=== PATIENT | male | born 1955 | race Caucasian/White ===

== ENCOUNTER 2016-10-05 23:57 | Emergency (ER) | payer BC ==
[2016-10-06 00:13] LABS: Hematocrit 38.7 % (42.0-52.0); Hemoglobin 12.9 gm/dL (13.5-18.0); Mean Corpuscular Hemoglobin 27.7 pg (27-31); Mean Corpuscular Hgb Conc 33.3 g/dl (32-36); Mean Platelet Volume 9.5 fl (6.0-9.5); Neutrophil # 4.3 K/mm3 (1.3-6.0); Neutrophil % 64.1 % (42-75.0); Platelet Count 262 K/mm3 (150-450); Red Blood Count 4.66 M/mm3 (4.7-6.0); Red Cell Distribution Width 13.5 % (11.5-14.0); White Blood Count 6.8 K/mm3 (4.0-10.5)
--- NOTE | 2016-10-06 00:16 | ERNOTE ---
Neuro HPI ER Record Presenting Symptoms: impaired speech Time Seen by Provider: 10/06/16 00:03 Source: patient Exam Limitations: clinical condition Immunizations: IMMUNIZATION HX Immunizations Up to Date Yes History of Influenza Vaccine No Hx Pneumococcal Vaccination No Allergies/Adverse Reactions: Allergies Allergy/AdvReac Type Severity Reaction Status Date / Time No Known Allergies Allergy Verified 08/28/15 07:56 Home Medications: HOME MEDICATIONS Atorvastatin Calcium 40 mg PO DAILY 10/06/16 [Last Taken Unknown] Eszopiclone 1 mg PO DAILY 10/06/16 [Last Taken Unknown] Oxybutynin Chloride [Ditropan Xl] 10 mg PO DAILY 10/06/16 [Last Taken Unknown] QUEtiapine FUMARATE [Seroquel] 25 mg PO DAILY 10/06/16 [Last Taken Unknown] QUEtiapine FUMARATE [Seroquel] 100 mg PO HS 10/06/16 [Last Taken Unknown] Tamsulosin HCl 0.4 mg PO HS 10/06/16 [Last Taken Unknown] - History of Present Illness Narrative: Pt was going to [facility] to get a snack for him and his . On the way there he felt drowsy and began to have trouble speaking. At [facility] he had trouble communicating over the speaker due to difficulty speaking. He called his stating he needed an ambulance to go to the hospital. He then drove himself to this ED with some difficulty before an ambulance could arrive there. Onset: sudden onset, continues in ER Severity: mild - Character of Deficits New weakness: Present: other - difficulty speaking. Baseline Cognition: Present: alert, oriented x 4 Baseline Gait: Present: uses a cane/walker Associated Symptoms: Reports: trouble concentrating, trouble thinking Review of Systems - Review of Systems Constitutional: Absent: recent illness EYE: Absent: blurred vision ENT: Present: no symptoms reported Respiratory: Absent: shortness of breath Cardiology: Absent: chest pain Gastrointestinal/Abdominal: Absent: nausea, vomiting Genitourinary: Present: no symptoms reported Musculoskeletal: Present: no symptoms reported Skin: Present: no symptoms reported Neurological: Present: See HPI Endocrine: Present: no symptoms reported Hematologic/Lymphatic: Present: no symptoms reported Psych: Present: no symptoms reported - Patient's Past Medical History Patient History - Medical: Migraines Patient History - Cardiac/Respiratory: No pertinent hx Patient History - Cancer: Lymphoma Patient History - Surgical Procedures: No surgical history Patient History - Other: None - Family History Mother Family History - Medical: Father Family History - Medical: Family History - Cardiac/Respiratory: Coronary Heart Disease - Social History Living Situations: home Abuse History: No History of abuse Psych History: No pertinent hx Smoking Status: Current every day smoker Patient requests Smoking Cessation Consult: No Initiate information on Smoking Cessation: No Alcohol Use: occasionally Drug Use: none - Immunizations Immunizations Up to Date: Yes Hx Pneumococcal Vaccination: No History of Influenza Vaccine: No Physical Exam - Physical Exam General Appearance: Present: wd/wn, alert, no apparent distress Eye Exam: Normal inspection: bilateral, PERRL: bilateral, EOMI: bilateral Ears, Nose, Throat: Present: normal ENT inspection Neck: Present: normal inspection, nontender Respiratory: Present: no respiratory distress, normal breath sounds, no accessory muscle use, chest nontender, lungs clear Cardiovascular/Chest: Present: regular rate, rhythm, no murmur, normal peripheral pulses Gastrointestinal/Abdominal: Present: normal bowel sounds, nontender, nondistended Back Exam: Present: normal inspection Extremity Exam: Present: normal inspection, normal range of motion Neurological Exam: Present: alert, oriented, lens and frames prescription clerk II-XII nml as tested, normal cerebellar test, facial droop - slight droop noticed on the right at rest but no deficit with active testing. Absent: motor weakness Skin Exam: Present: normal color, warm/dry Lymphatic Exam: Present: no adenopathy [place] Coma Scale - Assess Eye Opening: Spontaneous Motor: Obeys Commands Verbal: Oriented - Total Coma Scale Total: 15 Initial Stroke Assessment - Date/Time of assessment Stroke Scale Date: 10/06/16 Stroke Scale Time: 00:10 - NIH Stroke Scale Level of Consciousness: Alert LOC Questions (Year and Age): Answers both correctly LOC Commands (open/close eyes/fist): Performs both correctly Lateral Gaze Paresis: None Visual Field Loss: No visual loss Facial Palsy: Normal movement Right Arm Motor (10 sec hold): No drift Left Arm Motor (10 sec hold): No drift Right Leg Motor (5 sec hold): No drift Left Leg Motor (5 sec hold): No drift Limb Ataxia (finger/nose heel/stout): Absent Sensory Loss (pinprick arms/legs/face): Mild, aware yet dulled Language Aphasia (description/naming/reading): No aphasia; normal Dysarthria (speech clarity): Slurring, intelligeble Neglect Inattention (visual/tactile/auditory/spatial/person): No neglect Initial Stroke Scale Score:: 2 - Stroke Risk Assessment Stroke Risk Assessment Level: 1-4 Mild Impairment Stroke Inclusion/Exclusion Cri - Inclusion Questions: Yes Onset of symptoms <3 1/2 hours of admission to ETC: Yes - Exclusion Questions: Major symptoms rapidly improving: No Seizure at onset of stroke: No SBP>185; DBP>110 at time treatment is to begin: No Patient received Heparin or Coumadin within 48 hours: No Patient has elevated PTT or Protime/INR: No Blood glucose <50mg/dl or >400mg/dl: No NIHSS Score <4 or >22 performed by physician: Yes ED Progress - Results and Orders Patient's Lab Results:: I have reviewed the patient's lab results. Results and Orders: Laboratory Tests 10/06/16 10/06/16 10/06/16 00:09 00:09 00:09 WBC 6.8 Hgb 12.9 L Hct 38.7 L Plt Count 262 PT 10.8 INR (Anticoag Therapy) 1.04 Sodium 143 H Potassium 3.7 Chloride 107 H Carbon Dioxide 22.5 L Anion Gap 17.2 H BUN 38 H D Creatinine 1.77 H D Est GFR (Non-Af Amer) 42 L D BUN/Creatinine Ratio 21.5 Random Glucose 126 H Calcium 8.9 - Vital Signs Patient's Vital Signs:: I have reviewed the patient's vital signs. Vital Signs: Vital Signs 10/06/16 00:04 Temperature 36.5 C Pulse Rate 92 Respiratory 18 Rate Blood Pressure 112/69 O2 Sat by Pulse 97 Oximetry - EKG EKG: NSR EKG read: Interp. by md - CT/Ultrasound CT/Ultrasound Narrative: CT head: no acute changes - Progress/Reassessment Progress:: Unchanged Progress Note-Subjective: 10/06/16 00:56 on phone with [facility], Spoke with Dr. Ray Olivas from [facility]. He will accept the patient whether or not we give thrombolytics. he would want Heparin given if patient does not receive thrombolytics. Waiting for Dr. Malik Russo neurology. 10/06/16 01:22 Received call back from [place] with Dr. Malik Russo. He states that there is no real contraindication to thrombolytics but it is not necessary. He feels if the patient is very concerned with his symptoms I could give it. Spoke with the patient and his and they would rather go with Heparin only. Called and notified [facility] Nurse coffee supervisor of the decision, bed placement will be made accordingly. Departure Clinical Impression: CVA (cerebral vascular accident) Qualifiers: CVA mechanism: unspecified Qualified Code(s): I63.9 - Cerebral infarction, unspecified - Departure Disposition: Other health care facility Condition: Serious
[2016-10-06 00:22] LABS: Anion Gap 17.2 mmol/L (6.8-13.8); BUN/Creatinine Ratio 21.5 (9.0-21.6); Calcium * 8.9 mg/dL (7.9-10.9); Carbon Dioxide 22.5 mmol/L (24-32.6); Potassium 3.7 mmol/L (3.4-4.6)
--- OUTSIDE RECORDS SUMMARY | 2016-10-06 00:23 | XMS REPORT | Continuity of Care Document ---
:1955 Author Organization [facility] ([facility]) Address [address] [place] [address] Phone [phone] Care Team Providers Name Role Phone Jonathan Doshi Primary Care Provider [phone] Source Comments This disclosure is being made pursuant to the Care Everywhere program, applicable federal and state laws, and may not contain all informaitonavailable regarding this patient.[facility] ([facility]) Active Allergies and Adverse Reactions No Known Allergies Current Medications Prescription Sig. Disp. Refills Start Date End Date Status warfarin (COUMADIN) 2.5 mg Take 2.5 Tabs by Active tablet mouth daily. furosemide (LASIX) 80 mg Take 80 mg by Active tablet mouth daily. POTASSIUM PO Take 2 Tabs by Active mouth daily. HYDROCODONE Take 2 Tabs by Active BIT/ACETAMINOPHEN (VICODIN mouth daily as PO) needed. Active Problems Not on file Social History Tobacco Use Types Packs/Day Years Used Date Never Assessed Last Filed Vital Signs Vital Sign Reading Time Taken Blood Pressure 129/79 10/16/2009 10:37 AM CDT Pulse 80 10/16/2009 10:37 AM CDT Temperature 35.9 C (96.6 F) 10/16/2009 10:36 AM CDT Respiratory Rate - - Height 1.69 m (5' 6.53") 10/16/2009 10:36 AM CDT Weight 115.3 kg (254 lb 3.1 oz) 10/16/2009 10:36 AM CDT Body Mass Index 40.37 10/16/2009 10:36 AM CDT Oxygen Saturation - - Plan of Care Health Maintenance Due Date Last Done Comments HCV Screening 1955 Hepatitis B Vaccine (1 of 3 - Primary Series) 1955 Tdap Vaccine 1968 Lipid Disorder Screening 09/08/1975 MMR Vaccine 09/08/1975 Td Vaccine 09/08/1975 Colonoscopy 2007 Prostate Cancer Screening 09/08/2007 Influenza Vaccine: Seasonal (#1) 01/25/2016 Results from Last 3 Months Not on file
--- OUTSIDE RECORDS SUMMARY | 2016-10-06 00:23 | XMS REPORT | Continuity of Care Document ---
:1955 Author Organization [facility] [place] [address] Care Team Providers Name Role Phone Elaine Oreilly Primary Care Provider [phone] Source Comments This disclosure is being made pursuant to the [employer] program and maynot contain all information available regarding this patient.[facility] Active Allergies and Adverse Reactions No Known Allergies Current Medications Be aware that medications may not be up to date as of this document. Alwaysverify current medications with the patient. Prescription Sig. Disp. Refills Start Date End Date Status aspirin 81 MG Take 81 mg by Active tablet mouth daily. atorvastatin Take 1 tablet by 30 tablet 11 04/25/2016 Active (LIPITOR) 40 MG mouth daily. 7 tablet QUEtiapine Take 100 mg by 1 06/23/2016 Active Fumarate mouth nightly. (SEROQUEL) 100 MG tablet eszopiclone Take 1 tablet by 30 tablet 2 07/25/2016 Active (LUNESTA) 1 MG mouth nightly. TABS oxybutynin Take 1 tablet by 30 tablet 6 07/25/2016 Active (DITROPAN-XL) 10 mouth daily. MG 24 hr tablet QUEtiapine Indications: 08/01/2016 Active Fumarate takes 25mg at (SEROQUEL) 25 MG noon tablet colchicine 0.6 MG 2 tabs initial 10 tablet 0 08/08/2016 Active tablet dose, 1 tab 1 hour later. 1 tab daily thereafter until symptoms relieved. tamsulosin HCl TAKE 1 CAP BY 30 capsule 12 08/23/2016 Active (FLOMAX) 0.4 MG MOUTH ONCE DAILY capsule FLUoxetine HCl Take by mouth. Active (PROZAC PO) Indications: just ordered thru Sravani Zhong NP FLUoxetine 09/12/2016 Active (PROZAC) 20 MG capsule oxyCODONE-acetamin Take 1 tablet by 25 tablet 0 09/19/2016 Active ophen (PERCOCET) mouth 2 (two) 5-325 MG per times daily as tablet needed for Pain. potassium chloride Take 7 tabs oral 7 tablet 0 08/08/2016 Discontinued (K-TAB) 10 MEQ x one dose 7 tablet XARELTO 10 MG TABS 10 mg daily. 08/16/2016 Discontinued tablet 7 oxyCODONE-acetamin Take 1 tablet by 50 tablet 0 08/23/2016 Discontinued ophen (PERCOCET) mouth every 6 7 5-325 MG per (six) hours as tablet needed for Pain. cephALEXin Take 1 capsule 20 capsule 0 09/12/2016 (KEFLEX) 500 MG by mouth 2 (two) 7 capsule times daily. Active Problems Problem Noted Date Unable to bear weight 08/17/2016 Post-operative state 08/17/2016 CAD (coronary artery disease) 09/09/2015 Post PTCA 09/09/2015 Hyperlipidemia 09/09/2015 Anemia in chronic renal disease 09/03/2015 Chronic kidney disease, stage III (moderate) 09/03/2015 Hyperparathyroidism, secondary renal (HCC) 09/03/2015 Preop cardiovascular exam 09/02/2015 Arthritis of knee 09/02/2015 SOB (shortness of breath) 09/02/2015 Smoking 09/02/2015 Metabolic acidosis 04/03/2015 Chronic pain 04/03/2015 Dehydration 04/03/2015 Acute kidney injury (HCC) 04/03/2015 Follicular lymphoma (HCC) 09/22/2014 Carpal tunnel syndrome 11/04/2013 Overview: Overview: bilateral, seen on EMG ESPINOZA CUMMINS MD Migraine 10/24/2013 Overview: Overview: ESPINOZA CUMMINS MD Disturbance of skin sensation 10/24/2013 Overview: Overview: ESPINOZA CUMMINS MD Convulsions (HCC) 01/30/2012 Overview: Overview: MARION ARCOS MD Malignant lymphoma of extranodal and solid organ sites ([facility]) 01/16/2012 Overview: Overview: MARION ARCOS MD Family history of ischemic heart disease 10/19/2010 Overview: Overview: SUSANNA CONTEH MD Gout 10/19/2010 Overview: Overview: SUSANNA CONTEH MD Palpitations 10/19/2010 Overview: Overview: SUSANNA CONTEH MD Sleep apnea 10/19/2010 Overview: Overview: SUSANNA CONTEH MD Tobacco use disorder 10/19/2010 Overview: Overview: SUSANNA CONTEH MD 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 Overview: Overview: MARION ARCOS MD Overview: MARION ARCOS MD Phlebitis and thrombophlebitis of femoral vein (HCC) 09/24/2009 Overview: Overview: Most Recent Encounters Date Type Specialty Providers Description 10/03/2016 Initial consult Psychiatry Dionysus-Rouintr Bipolar 2 disorder rik Mayra, (HCC) (Primary Dx) PsyD 09/28/2016 Treatment Physical Therapy Alysa Chahal Post-operative B, DPM state (Primary Dx) Yaya Vázquez PTA 09/28/2016 Office Visit Podiatry Alysa Chahal Surgery follow-up B, DPM (Primary Dx) 09/22/2016 Data Import 09/19/2016 Office Visit Podiatry Alysa Chahal Surgery follow-up B, DPM (Primary Dx) 09/12/2016 Office Visit Family Medicine Elaine Oreilly DEEDEE (obstructive W, MERCHANDISING MANAGER sleep apnea) (Primary Dx); Bipolar I disorder depressed with melancholic features (HCC) 09/12/2016 Clinical Support Radiology Chahal, Shadiwetal Bunionette of left B, DPM foot; Hallux Henrieville, Li, rigidus of left RT foot 09/12/2016 Office Visit Podiatry Chahal, Shwetal Bunionette of left B, DPM foot (Primary Dx); Hallux rigidus of left foot; Hallux rigidus, right foot; Bunionette of right foot 09/12/2016 Orders Only Provider, Not In System 09/08/2016 Transcribe Orders Developmental and Vivienne Zhong Bipolar I Behavioral G, PERSONAL FINANCIAL COUNSELOR disorder, most Pediatrics recent episode depressed with melancholic features (HCC) (Primary Dx) 2016 Telephone Podiatry Che Velez bearing Kheashaun R status. 2016 Orders Only Provider, Not In System 09/02/2016 Documentation Family Medicine Barbara Rider Results - BMP from ISAIAS [facility]. 08/31/2016 Orders Only Oncology Sparrow, Prachi M, Malignant lymphoma CARPENTER PACKING of extranodal and solid organ sites (HCC) (Primary Dx) 08/31/2016 Telephone Podiatry Mayra Moody Other - pre-cert K, CARPENTER PACKING 08/24/2016 Orders Only Provider, Not In System 08/23/2016 Office Visit Podiatry Alysa Chahal Bunionette of left B, DPM foot (Primary Dx); Hallux rigidus of left foot 08/22/2016 Telephone Podiatry Che Velez - regarding Kheashaun R surgical foot; 08/19/2016 Orders Only [facility] Elaine Oreilly Hypokalemia W, MERCHANDISING MANAGER (Primary Dx) 08/17/2016 Telephone Podiatry Mayra Moody Other - post-op K, CARPENTER PACKING dressing 08/17/2016 Orders Only Podiatry Mayra Moody Unable to bear K, CARPENTER PACKING weight (Primary Dx); Post-operative state 08/16/2016 Office Visit Physical Therapy Yaya Vázquez Post-operative J, CLIENT SOLUTIONS SPECIALIST state (Primary Dx); Unable to bear weight 08/15/2016 Refill [facility] Elaine Oreilly W, MERCHANDISING MANAGER 08/12/2016 Telephone [facility] Elaine Oreilly Pre-Op Call W, MERCHANDISING MANAGER 08/10/2016 Telephone Podiatry Che Velez - Precert Kheashaun R 08/10/2016 Erroneous Telephone Podiatrreece Velez, Encounter Laceyeasbelenun R 08/08/2016 Office Visit Podiatry Alysa Chahal Gout of right B, DPM foot, unspecified cause, unspecified chronicity (Primary Dx); Bilateral foot pain; Bunionette of left foot; Bunionette of right foot; Hallux rigidus, left foot; Hallux rigidus, right foot 08/08/[address] [facility] Elaine Valadez Pre-operative exam W, MERCHANDISING MANAGER (Primary Dx) 08/08/2016 Clinical Support Radiology Alysa Chahal Pre-op testing; B, DPM Bunionette of left Chantell Gagnon L, foot; Hallux RDMS rigidus of left foot 08/08/2016 Refill Podiatry Alysa Chahal B, DPM 08/08/2016 Telephone [facility] Elaine Oreilly Results W, MERCHANDISING MANAGER 08/08/2016 Orders Only Podiatry Mayra Moody Pre-op testing ISAIAS Barahona (Primary Dx); Bunionette of left foot; Hallux rigidus of left foot 08/04/2016 Orders Only Podiatry Rosie, Preoperative Kheashaun R clearance (Primary Dx); Bunionette of left foot; Bunionette of right foot; Hallux rigidus, left foot; Hallux rigidus, right foot 08/04/2016 Orders Only Podiatry Rosie, Preoperative Kheashaun R clearance (Primary Dx); Bunionette of left foot; Hallux rigidus, left foot; Bunionette of right foot; Hallux rigidus, right foot 08/03/2016 Telephone Podiatry Mayra Moody Other - schedule ISAIAS Barahona sugtawanda 07/25/2016 Office Visit Family Medicine Elaine Oreilly Vasculogenic W, MERCHANDISING MANAGER erectile dysfunction, unspecified vasculogenic erectile dysfunction type (Primary Dx); Overactive bladder; Mood disorder ([facility]) 07/25/2016 Refill Urology Mandy Oreilly RN 07/25/2016 Refill Family Medicine Cara Guadarrama CMA 07/21/2016 Office Visit Podiatry Alysa Chahal Bunionette of left B, DPM foot (Primary Dx); Bunionette of right foot; Bilateral foot pain; Hallux rigidus of both feet; Skew foot deformity, unspecified laterality 07/19/2016 Refill Urology Cara Jean-Baptiste RN Social History Tobacco Use Types Packs/Day Years Used Date Current Every Day Smoker Cigarettes Smokeless Tobacco: Never Used Tobacco Cessation:Ready to Quit: No; Counseling Given: Yes Comments: Alcohol Use Drinks/Week oz/Week Comments No 0 Standard drinks or equivalent 0.0 Alcoholic Drinks/day: CURRENT ALCOHOL USER Last Filed Vital Signs Vital Sign Reading Time Taken Blood Pressure 124/80 09/12/2016 1:55 PM CDT Pulse 96 09/12/2016 1:55 PM CDT Temperature 36.2 C (97.2 F) 09/12/2016 1:55 PM CDT Respiratory Rate 24 09/12/2016 1:55 PM CDT Height 1.715 m (5' 7.5") 09/12/2016 1:55 PM CDT Weight 104.327 kg (230 lb) 09/12/2016 1:55 PM CDT Body Mass Index 35.47 09/12/2016 1:55 PM CDT Oxygen Saturation 96% 09/12/2016 1:55 PM CDT Plan of Care Date Type Specialty Providers Description 10/12/2016 Appointment Psychiatry Laura Joya, MHT [address] [place] [address] [phone] 10/12/2016 Appointment Podiatry Alysa Chahal, DPM [address] [facility] [address] [place] [address] [phone] (Fax) 10/17/2016 Appointment Radiology Maroin Gutierrez MD [address] [place] [address] [phone] (Fax) 10/24/2016 Appointment Oncology 10/24/2016 Appointment Oncology Marion Gutierrez MD [facility] [place] [address] [phone] (Fax) 01/11/2017 Appointment Cardiology Alta Queen, MERCHANDISING MANAGER [address] [place] [address] [phone] (Fax) 03/16/2017 Appointment Family Medicine Elaine Oreilly, MERCHANDISING MANAGER [address] [place] [address] [phone] (Fax) Health Maintenance Due Date Last Done Comments Hepatitis C Screening 09/08/1975 Pneumococcal Medium Risk 19-64 yo (1 of 1 - PPSV23) 1976 Tetanus/Pertussis (1 - Tdap) 1976 Colonoscopy 09/08/2007 Well Adult Visit 09/08/2007 Influenza Immunization (#1) 2016 Results from Last 3 Months XR FOOT MIN 3 VIEWS (09/12/2016 12:52 PM)Only the most recent of2 resultswithin the time period is included. Narrative XR FOOT MIN 3 VIEWS [id number] LT Reason: REASON FOR EXAM:->POST OP BUNIONECTOMY AND BUNIONETTE Clinical History: post op bunionectomy and bunionette from about 1 week ago Postoperative changes of the left foot again noted when compared to postop recovery films dated 08/16/2016.Postoperative changes are similar and involve the left first and fifth metatarsal bones.No superimposing acute fracture.Some soft tissue swelling may persist.External immobilizing device has been intervally removed since prior exam. Impressions: 1.Similar postoperative changes of the left foot. THIS IS AN ELECTRONICALLY SIGNED REPORT BY READING PHYSICIAN: Chip GilmoreOArmaan2016-09-12 17:35:24 Procedure Note Eddie, External Ris In - Mon Sep 12, 2016 5:35 PM CDT XR FOOT MIN 3 VIEWS [id number] LT Reason: REASON FOR EXAM:->POST OP BUNIONECTOMY AND BUNIONETTE Clinical History: post op bunionectomy and bunionette from about 1 week ago Postoperative changes of the left foot again noted when compared to postop recovery films dated 08/16/2016. Postoperative changes are similar and involve the left first and fifth metatarsal bones. No superimposing acute fracture. Some soft tissue swelling may persist. External immobilizing device has been intervally removed since prior exam. Impressions: 1. Similar postoperative changes of the left foot. THIS IS AN ELECTRONICALLY SIGNED REPORT BY READING PHYSICIAN: Chip GilmoreOArmaan 2016-09-12 17:35:24 Amb Ref to Neuropsychology (09/08/2016)XR FOOT 2 VIEWS (09/06/2016)Basic metabolic panel (08/31/2016)Only the most recent of2 resultswithin the time period is included.Uric acid (08/08/2016 11:30 AM) Component Value Range Uric Acid 8.6(H) 3.5-7.2 mg/dL Narrative Testing performed at [facility], [address] [place] [address].Member Of Congress Kole Lloyd MD Comprehensive metabolic panel (08/08/2016 11:30 AM) Component Value Range Glucose 130(H)Comment: 60-100 mg/dL Fasting Plasma Glucose (FPG)<100 MG/DL Impaired Fasting Glucose (IFG) 100-125 MG/DL Provisional Diagnosis of Diabetes Mellitus > xi=188 MG/DL (Diagnosis Must Be Confirmed) BUN, Blood 17 8-26 mg/dL Creatinine 1.1 0.7-1.4 mg/dL Glomerular Filtration Rate 71(L) >90 mL/min/1.73mm2 Estimate Glomerlular Filtration Rate 82(L)Comment:The estimated GFR >90 mL/min/1.73mm2 Estimate- has not been validated for women or patients with serious comorbid conditions, or with extremes of body size, muscle mass, or nutritional status. Calcium 9.1 8.4-10.2 mg/dL Sodium 144 136-145 mmol/L Potassium 3.0(L) 3.4-4.9 mmol/L Chloride 107 99-111 mmol/L CO2 26.0 21.0-32.0 mmol/L Albumin 3.3(L) 3.5-5.0 g/dL Total Protein 6.2 6.1-8.0 g/dL Bilirubin Total 0.5 0.2-1.2 mg/dL Alkaline Phosphatase 89 40-150 U/L AST 14 5-34 U/L ALT 26 0-55 u/L Narrative Testing performed at [facility], [address] [place] [address].Member Of Congress Kole Lloyd MD CBC auto differential (08/08/2016 11:30 AM) Component Value Range WBC 9.6 3.1-11.0 x10^3/uL RBC 4.92 4.29-5.55 x10^6/uL Hemoglobin 14.1 13.3-16.5 g/dL Hematocrit 40.6 39.2-48.0 % MCV 82.5 81.0-98.0 fL MCH 28.7 27.2-33.3 pg MCHC 34.7 31.7-35.6 g/dL RDW 14.0(H) 11.4-13.6 % SD-RDW 40.8 36.4-46.3 fL Platelets 270 147-370 x10^3/uL MPV 9.7 9.1-12.1 fL NE% 78.0(H) 42.0-76.0 % %LYMPH 10.8(L) 15.0-44.0 % %MONO 7.0 4.0-13.0 % % Eosinophils 3.8 0.0-6.0 % % Basophils 0.3 0.0-1.0 % Imm Gran Relative 0.1 0.0-1.0 % NE# 7.5(H) 1.2-7.3 x10^3/uL Lymphs # 1.0 0.6-3.5 x10^3/uL Dukes# 0.7 0.2-0.9 x10^3/uL Eosinophil # 0.4 0.0-0.4 x10^3/uL Baso# 0.0 0.0-0.1 x10^3/uL Imm Gran Absolute 0.01 0.00-0.10 x10^3/uL Specimen BLOOD Narrative Testing performed at [facility], [address] [place] [address].Member Of Congress Kole Lloyd MD Specimen: BLD EKG 12 lead (08/08/2016 11:16 AM) Narrative Vent Rate: 81 bpm RR Interval: 735 msec LA Interval: 158 msec QRS Duration: 113 msec QT Interval: 395 msec QTC Interval: 432 msec P-R-T Gary: 58 - -15 - 49 degrees SINUS RHYTHM MODERATE INTRAVENTRICULAR CONDUCTION DELAY [110+ ms QRS DURATION] NONSPECIFIC T-WAVE ABNORMALITY Electronically Signed By: Dev Marina Procedure Note Eddie, External Ris In - MonAug 08, 2016 11:39 AM CUSTOMER CONTACT SALES ASSOCIATE Vent Rate: 81 bpm RR Interval: 735 msec LA Interval: 158 msec QRS Duration: 113 msec QT Interval: 395 msec QTC Interval: 432 msec P-R-T Gary: 58 - -15 - 49 degrees SINUS RHYTHM MODERATE INTRAVENTRICULAR CONDUCTION DELAY [110+ ms QRS DURATION] NONSPECIFIC T-WAVE ABNORMALITY Electronically Signed By: Dev Marina Measure post void residual (07/21/2016)
[2016-10-06 00:24] LABS: Prothrombin Time (Patient) 10.8 Seconds (9.4-11.4)
[2016-10-06 00:27] LABS: INR 1.04 INR (0.90-1.10)
[2016-10-06] MEDS ORDERED: HEPARIN SODIUM,PORCINE 5,000 UNITS/ML VIAL ONE (01:26)
[2016-10-06] MEDS ORDERED: HEPARIN SODIUM,PORCINE/D5W 25,000 UNITS/500 ML BAG IV ONE (01:26)
[2016-10-06] MEDS ORDERED: HEPARIN SODIUM,PORCINE 5,000 UNITS/ML VIAL IV ONE (01:33)
[2016-10-06] MEDS ORDERED: HEPARIN SODIUM,PORCINE/D5W 25,000 UNITS/500 ML BAG IV SCH (01:45)
[2016-10-06 01:58] VITALS: BP 110/67
== END 2016-10-06 01:57 | disposition short-term general hospital (02) ==
LOC: ER 23:57
DX: I63.9 Cerebral infarction, unspecified (principal); F17.210 Nicotine dependence, cigarettes, uncomplicated; Z85.72 Personal history of non-Hodgkin lymphomas

== ENCOUNTER 2017-02-27 22:54 | Emergency (ER) | payer BC ==
--- NOTE | 2017-02-27 23:06 | ERNOTE ---
Neuro HPI ER Record Date of Service: 02/27/17 Presenting Symptoms: impaired speech, confusion Time Seen by Provider: 02/27/17 22:57 Source: patient, EMS Exam Limitations: clinical condition, physical impairment Immunizations: IMMUNIZATION HX Immunizations Up to Date Yes History of Influenza Vaccine No Hx Pneumococcal Vaccination No Allergies/Adverse Reactions: Allergies Allergy/AdvReac Type Severity Reaction Status Date / Time No Known Allergies Allergy Verified 08/28/15 07:56 Home Medications: HOME MEDICATIONS Atorvastatin Calcium 40 mg PO HS 10/06/16 [Last Taken Unknown] Oxybutynin Chloride [Ditropan Xl] 10 mg PO DAILY 10/06/16 [Last Taken Unknown] QUEtiapine FUMARATE [Seroquel] 50 mg PO DAILY 10/06/16 [Last Taken Unknown] QUEtiapine FUMARATE [Seroquel] 300 mg PO HS 10/06/16 [Last Taken Unknown] Tamsulosin HCl 0.4 mg PO HS 10/06/16 [Last Taken Unknown] Clopidogrel Bisulfate [Plavix] 75 mg PO DAILY 02/27/17 [Last Taken Unknown] FLUoxetine HCL [Prozac] 20 mg PO DAILY 02/27/17 [Last Taken Unknown] Gabapentin 300 mg PO TID 02/27/17 [Last Taken Unknown] - History of Present Illness Narrative: This is a 61-year-old male brought in by EMS. They were called out to the patient's home for an unresponsive person. Apparently the patient was sitting at the table doing something and a family member saw him. They went upstairs when they came back down they found him slumped over. He was not responding at that time. They activated EMS. EMS arrived and found him nonresponsive with periods of apnea up to 20 seconds. He was placed on a stretcher and brought to the emergency department. During the ride he had continued episodes of apnea. He was noted to be hypotensive at 80/40 was given 500 mL of saline. He started to wake up in route. 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 He does take Seroquel and Neurontin. The patient denies abusing any of those medicines this evening. Really no other information can be obtained. He is still extremely difficult to understand although he is more arousable than previously per EMS Review of Systems - Narrative Narrative: Review of systems is severely limited by the patient's medical condition. - Review of Systems Constitutional: Present: no symptoms reported - Patient's Past Medical History Patient History - Medical: Migraines Patient History - Cardiac/Respiratory: No pertinent hx Patient History - Cancer: Lymphoma Patient History - Surgical Procedures: No surgical history Patient History - Other: None - Family History Mother Family History - Medical: Father Family History - Medical: Family History - Cardiac/Respiratory: Coronary Heart Disease - Social History Living Situations: home Abuse History: No History of abuse Psych History: No pertinent hx Alcohol Use: occasionally Drug Use: none - Immunizations Immunizations Up to Date: Yes Hx Pneumococcal Vaccination: No History of Influenza Vaccine: No Physical Exam - Physical Exam General Appearance: Present: other - this is a well-developed well-nourished gentleman laying on stretcher. He is verbal. He responds to voice. His speech is extremely slurred and difficult to understand. Does move all extremities Head Exam: Present: normal inspection, no evidence of injury Eye Exam: Normal inspection: bilateral, PERRL: bilateral, EOMI: bilateral, Other : left - patient has some mild medial canthal episcleritis or erythema. Not a subconjunctival hemorrhage Ears, Nose, Throat: Present: normal ENT inspection Neck: Present: normal inspection, nontender Respiratory: Present: no respiratory distress, normal breath sounds, no accessory muscle use, lungs clear Cardiovascular/Chest: Present: regular rate, rhythm, no murmur, normal peripheral pulses Gastrointestinal/Abdominal: Present: normal bowel sounds, nontender, nondistended, soft, no organomegaly Back Exam: Present: normal inspection, normal range of motion, no CVA tenderness Extremity Exam: Present: normal inspection, non-tender, normal range of motion, no edema Neurological Exam: Present: alert, no motor/sensory deficits, water mechanic II-XII nml as tested, other - patient's speech is somewhat slurred. He does follow commands. He appears to be able to move all extremities. Unable to cooperate with cerebellar testing. Skin Exam: Present: normal color, warm/dry Lymphatic Exam: Present: no adenopathy ED Progress - EKG EKG: NSR EKG read: Interp. by me EKG Comments: Patient has sinus rhythm ventricular rate of 83 interventricular conduction delay with QRS of 114 normal axis other intervals are normal no ST segment deviation no signs of acute ischemia - X-Ray X-Ray #1 X-Ray: chest Interpretation: Interp. by me X-ray Comments: Cardiac silhouette is normal. Patient has a rounded density in the left upper lobe which is unchanged from 2015. Questionable right upper lobe rounded area may represent artifact. No definite acute cardiopulmonary disease - CT/Ultrasound CT/Ultrasound Narrative: CT fails to demonstrate any acute intracranial or extracranial abnormalities. Patient does have chronic small vessel white matter disease. - Progress/Reassessment Chief Complaint: Altered Mental Status Plan - Plan Plan: The patient's says that in the past when he has had TIAs, this is very similar to how he acted. This seems much worse than previously. He has an implanted youth nutritional monitor. His doctors are all at [facility] in [facility]. She would like him to be transferred there if he needs to be admitted. I think this is a reasonable request as he is been treated and evaluated for the same condition at that hospital multiple times. The patient admits that he used methamphetamine on Monday. That would not explain why he is having the alteration in his mental status tonight. He is still not completely clear and back to normal. He has opiates in his system which apparently were prescribed for her by Dr. pena ago for his shoulder. He does have bipolar disorder. Other substance use cannot be ruled out. Nevertheless he has kidney disease which is worsening, altered mental status with history of CVA, TIA which acted like this in the past. Having him evaluated until he is back to normal baseline neurologically is appropriate. Again the family has requested a transfer to [place]. I spoke with Dr. Olivas at [facility] who is graciously agreed to accept the patient. Departure Clinical Impression: Altered mental status Qualifiers: Altered mental status type: disorientation Qualified Code(s): R41.0 - Disorientation, unspecified Chronic kidney disease Qualifiers: Chronic kidney disease stage: unspecified stage Qualified Code(s): N18.9 - Chronic kidney disease, unspecified - Departure Disposition: Other health care facility Condition: Stable
[2017-02-27 23:15] LABS: Hematocrit 34.5 % (42.0-52.0); Hemoglobin 11.6 gm/dL (13.5-18.0); Mean Cell Volume 82.1 fl (78-100); Mean Corpuscular Hemoglobin 27.6 pg (27-31); Mean Corpuscular Hgb Conc 33.6 g/dl (32-36); Mean Platelet Volume 9.5 fl (6.0-9.5); Neutrophil # 6.1 K/mm3 (1.3-6.0); Neutrophil % 72.5 % (42-75.0); Platelet Count 235 K/mm3 (150-450); Red Cell Distribution Width 13.8 % (11.5-14.0); White Blood Count 8.3 K/mm3 (4.0-10.5)
[2017-02-27 23:34] LABS: ALT 20 U/L (19-67); AST 16 U/L (0-48); Albumin * 3.7 gm/dl (3.4-5.0); Alkaline Phosphatase * 90 U/L (50-170); BUN/Creatinine Ratio 8.1 (9.0-21.6); Bilirubin, Total 0.7 mg/dL (0.0-1.1); Blood Urea Nitrogen 26 mg/dL (6-23); Ca. Corrected For Albumin 8.1 mg/dL (8.4-10.2); Calcium * 8.2 mg/dL (7.9-10.9); Chloride 106 mmol/L (97-106); Glucose * 121 mg/dL (70-110); Potassium 3.4 mmol/L (3.4-4.6); Sodium 146 mmol/L (132-142); Total Protein 6.6 gm/dL (6.2-8.2)
[2017-02-27 23:35] LABS: Troponin I Less than 0.017 ng/ml (0.00-0.10)
[2017-02-27 23:38] LABS: Anion Gap 17.6 mmol/L (6.8-13.8); Carbon Dioxide 25.8 mmol/L (24-32.6)
[2017-02-27 23:59] LABS: Urine Appearance Clear; Urine Bilirubin Negative (NEGATIVE); Urine Blood Negative /ul (NEGATIVE); Urine Color Dark Yellow; Urine Ketone Negative (NEGATIVE); Urine Nitrite Negative (NEGATIVE); Urine Protein Negative (NEGATIVE); Urine RBC None Seen /hpf (0-5); Urine Specific Gravity 1.015 SP.GR. (1.005-1.030); Urine Urobilinogen Normal (NORMAL); Urine WBC None Seen /hpf (0-5)
[2017-02-28] LABS: Urine Bacteria TRACE; Urine Fine Granular Cast 0-5 /LPF
[2017-02-28 00:03] LABS: Cocaine Ur Negative (NEGATIVE); Urine Barbiturate Negative (NEGATIVE); Urine Benzodiazepines Negative (NEGATIVE); Urine PCP Negative (NEGATIVE); Urine THC Negative (NEGATIVE)
[2017-02-28 00:05] LABS: Urine Opiates Positive (NEGATIVE)
[2017-02-28] MEDS ORDERED: NORMAL SALINE 1,000 ML IV PRN (01:17)
[2017-02-28 01:25] VITALS: BP 95/74
== END 2017-02-28 01:15 | disposition short-term general hospital (02) ==
LOC: ER 22:54
DX: R41.0 Disorientation, unspecified (principal); N18.9 Chronic kidney disease, unspecified; Z85.72 Personal history of non-Hodgkin lymphomas
CPT/HCPCS: 36415; 70450; 71010; 80053; 80307; 81001; 83605; 84484; 85025; 93005; 99285; G0481